=== PATIENT | female | born 1990 | race Caucasian/White ===

== ENCOUNTER 2021-08-29 18:54 | Inpatient (IN) | payer MEDICAID, OTHER ==
[2021-08-29] MEDS ORDERED: ACETAMINOPHEN TAB 325 MG TAB PO STA (21:55)
[2021-08-29 22:14] LABS: Amphetamine Screen,Urine Not Detected (NotDetected); Barbiturate Screen,Urine Not Detected (NotDetected); Benzodiazepines Screen,Urine Not Detected (NotDetected); Cocaine Screen,Urine Not Detected (NotDetected); Methadone Screen, Urine Not Detected (NotDetected); Opiate Screen,Urine Not Detected (NotDetected); Oxycodone Screen, Urine Not Detected (NotDetected); Phencyclidine Screen,Urine Not Detected (NotDetected); Tricyclic Antidepressant,Urine Not Detected (NotDetected); Urn Cannabinoid Scrn Not Detected (NotDetected)
[2021-08-29 22:57] LABS: Basophils # (A) 0.1 k/uL (0-0.2); Basophils % (A) 1 %; Eosinophils % (A) 0 %; HCT 37.6 % (34.0-46.0); HGB 12.3 gm/dL (11.4-16.0); Lymphocytes # (A) 3.7 k/uL (1.0-4.8); Lymphocytes % (A) 31 %; MCHC 32.6 g/dL (31.0-37.0); Mean Platelet Volume 8.2; Monocytes # (A) 0.7 k/uL (0-1.0); Monocytes % (A) 6 %; Neutrophils # (A) 7.3 k/uL (1.3-7.7); Neutrophils % (A) 61 %; Platelet Count 364 k/uL (150-450); RBC 4.08 m/uL (3.80-5.40)
[2021-08-29 23:13] LABS: ALT 14 U/L (4-34); AST 21 U/L (14-36); African American GFR (CKD) >90 (>60 ml/min/1.73 sqM); Albumin 4.2 g/dL (3.5-5.0); Alkaline Phosphatase 68 U/L (38-126); Anion Gap 6 mmol/L; Blood Urea Nitrogen 12 mg/dL (7-17); Calcium 8.9 mg/dL (8.4-10.2); Carbon Dioxide 24 mmol/L (22-30); Chloride 107 mmol/L (98-107); Glucose 99 mg/dL (74-99); Non-African American GFR(CKD) >90 (>60 ml/min/1.73 sqM); Potassium 3.8 mmol/L (3.5-5.1); Sodium 137 mmol/L (137-145); Total Bilirubin 0.6 mg/dL (0.2-1.3); Total Protein 6.9 g/dL (6.3-8.2)
[2021-08-30 00:15] LABS: Amorphous Sediment,Urine Rare /hpf; Appearance,Urine Cloudy (Clear); Bacteria,Urine Occasional /hpf; Bilirubin,Urine 1+ (Negative); Blood,Urine Negative (Negative); Calcium Oxalate Crystals,Urine Moderate /hpf; Color,Urine Yellow; Glucose,Urine (UA) Negative (Negative); Ketones,Urine Trace (Negative); Leukocyte Esterase,Urine Large (Negative); Mucus,Urine Many /hpf; Nitrite,Urine Negative (Negative); PH, Urine 5.5 (5.0-8.0); Protein,Urine 1+ (Negative); Specific Gravity,Urine 1.043 (1.001-1.035); Squamous Epithelial Cell,Urine 11 /hpf (0-4); WBC,Urine 8 /hpf (0-5)
[2021-08-30] MEDS ORDERED: MAGNESIUM HYDROXIDE 2,400 MG/10 ML CUP PO PRN (03:06)
[2021-08-30] MEDS ORDERED: HALOPERIDOL LACTATE 5 MG/ML 1 ML VIAL IM PRN (03:06)
[2021-08-30] MEDS ORDERED: MAG HYDROX/AL HYDROX/SIMETH 30 ML CUP PO PRN (03:06)
[2021-08-30] MEDS ORDERED: LORazepam 2 MG/ML INJ IM STA (03:10)
[2021-08-30] MEDS ORDERED: haloperidoL 5 MG TAB PO PRN (03:10)
[2021-08-30] MEDS ORDERED: LORazepam 2 MG/ML INJ IM PRN (03:26)
[2021-08-30] MEDS ORDERED: LORazepam 1 MG/0.5 ML VIAL IM PRN (06:15)
[2021-08-30] MEDS: ACETAMINOPHEN TAB 325 MG TAB PO PRN ×2 (12:17→19:30)
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
[2021-08-30] MEDS ORDERED: PALIPERIDONE 3 MG TAB.ER.24 PO SCH (21:00)
[2021-08-31 06:54] LABS: Basophils % (A) 1 %; Eosinophils % (A) 0 %; HCT 37.8 % (34.0-46.0); HGB 12.8 gm/dL (11.4-16.0); Lymphocytes # (A) 2.9 k/uL (1.0-4.8); Lymphocytes % (A) 43 %; MCH 31.7 pg (25.0-35.0); MCHC 33.7 g/dL (31.0-37.0); Monocytes # (A) 0.4 k/uL (0-1.0); Monocytes % (A) 6 %; Neutrophils # (A) 3.3 k/uL (1.3-7.7); Neutrophils % (A) 49 %; Platelet Count 323 k/uL (150-450); RBC 4.02 m/uL (3.80-5.40); RDW 13.1 % (11.5-15.5); WBC 6.7 k/uL (3.8-10.6)
[2021-08-31 07:06] LABS: ALT 14 U/L (4-34); AST 21 U/L (14-36); African American GFR (CKD) >90 (>60 ml/min/1.73 sqM); Albumin 4.1 g/dL (3.5-5.0); Alkaline Phosphatase 54 U/L (38-126); Anion Gap 6 mmol/L; Blood Urea Nitrogen 8 mg/dL (7-17); Calcium 8.6 mg/dL (8.4-10.2); Carbon Dioxide 24 mmol/L (22-30); Chloride 106 mmol/L (98-107); Glucose 89 mg/dL (74-99); Non-African American GFR(CKD) >90 (>60 ml/min/1.73 sqM); Potassium 3.9 mmol/L (3.5-5.1); Sodium 136 mmol/L (137-145); Total Bilirubin 0.8 mg/dL (0.2-1.3); Total Protein 6.6 g/dL (6.3-8.2)
[2021-08-31] MEDS: ACETAMINOPHEN TAB 325 MG TAB PO PRN ×2 (07:28→18:18)
[2021-08-31 07:55] LABS: C. trachomatis,PCR Negative (Neg,Equiv); Chlamydia trachomatis Source Urine; N. gonorrhoeae,PCR Negative (Neg,Equiv); Neisseria Source Urine
[2021-08-31 12:10] LABS: Chol/HDL Ratio 5.89 Ratio; LDL Cholesterol,Calculated 156.1 mg/dL (0.0-131.0)
--- NOTE | 2021-08-31 12:17 | P.PN ---
Progress Note - Text Progress Note Date: 08/31/21 Interval History: Patient was seen resting in bed and was directable and agreeable to speak with real estate underwriter in her room., The patient reports that she is feeling "tired." She does report that she was able to sleep much better last night compared to how she was sleeping prior to her admission to the hospital. She continues to report the delusional belief that people are controlling her however states that this is less intense than before. She read this intensity 7 out of 10 with 10 being most severe and how she was feeling prior to coming to the hospital. She is currently denying any suicidal or homicidal ideation, intention, and/or plan. She is not reporting any overt auditory or visual hallucinations. She has been adherent with medication and only reports mild sedation as a side effect at this time. She is agreeable to further titration of her Invega. Mental Status Exam: General Appearance: Patient appears to be stated age is alert, directable, and cooperative. Behavior: Patient is calmly seated without any agitated behavior. Speech: Patient's speech is fluent and nonpressured. Mood/Affect: Mood is improving mildly, affect is congruent and constricted. Suicidality/Homicidality: Patient denies having any suicidal or homicidal ideation intent or plan. Perceptions: Patient denies any visual hallucinations and denies any auditory hallucinations Though content/process: She continues to have delusional beliefs and paranoia. She believes that people are able to control her and that her actions are not her own. Memory and concentration: AOX3, grossly intact for the purposes of this session Judgment and insight: Improving mildly Vital Signs Temp 97.7 F 08/31/21 04:30 Pulse 126 H 08/31/21 04:30 Resp 18 08/31/21 04:30 BP 134/87 08/31/21 04:30 Pulse Ox 100 08/30/21 05:34 FiO2 Intake & Output 08/30/21 08/31/21 08/31/21 18:59 06:59 18:59 Weight 104.326 kg Laboratory Results - Last 24 Hours 08/29/21 08/31/21 08/31/21 23:20 06:13 06:13 WBC 6.7 RBC 4.02 Hgb 12.8 Hct 37.8 MCV 94.0 MCH 31.7 MCHC 33.7 RDW 13.1 Plt Count 323 MPV 8.0 Neutrophils % 49 Lymphocytes % 43 Monocytes % 6 Eosinophils % 0 Basophils % 1 Neutrophils # 3.3 Lymphocytes # 2.9 Monocytes # 0.4 Eosinophils # 0.0 Basophils # 0.0 Sodium Potassium Chloride Carbon Dioxide Anion Gap BUN Creatinine Est GFR (CKD-EPI)AfAm Est GFR (CKD-EPI)NonAf Glucose Estimated Ave Glu mg/dL 94 Hemoglobin A1c 4.9 Calcium Total Bilirubin AST ALT Alkaline Phosphatase Total Protein Albumin Triglycerides Cholesterol LDL Cholesterol, Calc VLDL Cholesterol, Calc HDL Cholesterol Cholesterol/HDL Ratio TSH Chlamydia Source Urine Chlamydia DNA (PCR) Negative N. gonorrhoeae Source Urine N.gonorrhoeae DNA Probe Negative 08/31/21 06:13 WBC RBC Hgb Hct MCV MCH MCHC RDW Plt Count MPV Neutrophils % Lymphocytes % Monocytes % Eosinophils % Basophils % Neutrophils # Lymphocytes # Monocytes # Eosinophils # Basophils # Sodium 136 L Potassium 3.9 Chloride 106 Carbon Dioxide 24 Anion Gap 6 BUN 8 Creatinine 0.62 Est GFR (CKD-EPI)AfAm >90 Est GFR (CKD-EPI)NonAf >[address] Glu mg/dL Hemoglobin A1c Calcium 8.6 Total Bilirubin 0.8 AST 21 ALT 14 Alkaline Phosphatase 54 Total Protein 6.6 Albumin 4.1 Triglycerides 191.00 H Cholesterol 234.00 H LDL Cholesterol, Calc 156.1 H VLDL Cholesterol, Calc 38.20 HDL Cholesterol 39.70 L Cholesterol/HDL Ratio 5.89 TSH 3.010 Chlamydia Source Chlamydia DNA (PCR) N. gonorrhoeae Source N.gonorrhoeae DNA Probe Assessment Schizoaffective disorder, bipolar type Plan: -Patient continues to meet criteria for inpatient psychiatric admission for symptom stabilization and safety. Patient has signed adult voluntary form and medication consent and was placed in patient's chart. -Medications: Increase Invega to 6 mg by mouth at bedtime for mood stabilization/psychosis. Consider patient to 9 mg and possible transition to a long-acting injectable medication if the patient is agreeable. -When necessary Ativan and Haldol for agitation/aggression. -SW on board for discharge planning. Encouraged the patient to participate in milieu.
[2021-08-31] MEDS: LORazepam 1 MG TAB PO PRN (14:19)
[2021-08-31] MEDS: PROPRANOLOL 20 MG TAB PO SCH ×2 (16:26→19:49)
[2021-08-31] MEDS: PALIPERIDONE 3 MG TAB.ER.24 PO SCH (21:58)
--- NOTE | 2021-09-01 07:18 | P.HPMEDMHU ---
History of Present Illness H&P Date: 08/31/21 Chief Complaint: Medical management Is a late note entry. Patient was seen on 08/31/2021. Patient is a 31-year-old female with no significant past medical history that is admitted to the mental health unit. [facility] physicians has been consulted for medical management of this patient. Patient reports back pain has been ongoing for the past week. Pain extends from the neck or lumbar region, bilateral, described as sore in nature, worsened with movement. Patient associates her pain with involuntary movement. She reports the pain to be dull and achy. She reports that sleeping makes it better. Pain is currently 5 out of 10 in severity. States that Tylenol helps. Denies any bladder or bowel incontinence. Denies any saddle anesthesia. She also complains of brain fog. She complains of flaky circular rash that occurring in patches on her left leg and left chest. She would like to be tested for syphilis. She denies any headache, lower extremity edema, nausea vomiting, fever or chills, cough, chest pain, changes in urination or bowel habits. No changes in appetite or weight. She denies any dizziness, numbness/weakness/ tingling of the extremities. She denies smoking cigarettes. Reports occasional marijuana use. Reports occasional alcohol use. Review of systems has been performed and is negative except for above. General: [non toxic], [no distress], [appears at stated age] Derm: [warm], [dry] Head: [atraumatic], [normocephalic], [symmetric] Eyes: [EOMI], [no lid lag], [anicteric sclera] Mouth: [no lip lesion], [mucus membranes moist] Cardiovascular: [S1S2 reg], [no murmur] Lungs: [CTA bilateral], [no rhonchi, no rales] , [no accessory muscle use] Abdominal: [soft], [ nontender to palpation], [no guarding], [no appreciable organomegaly] Ext: [no gross muscle atrophy], [no edema], [flaky raised circular rash in the left lower extremity and left upper chest 0.5 cm x 0.5 cm] Neuro: [ CN II-XI grossly intact], [no focal neuro deficits] Psych: [Alert], [oriented], [appropriate affect] She has full range of motion of her neck, Brudzinski and Kernig negative. Assessment and plan Rash appears to be psoriasis Chronic lower back pain likely musculoskeletal Asymptomatic bacteriuria Dyslipidemia Morbid obesity Her rash appears to be psoriasis. Would recommend trial of hydrocortisone. She would like to be tested for syphilis. Back pain likely related to musculoskeletal pain Tylenol as needed for pain. No antibiotics for asymptomatic bacteria. Encourage dietary modification dyslipidemia. Patient would benefit from a structured weight loss program. Past Medical History Past Medical History: No Reported History History of Any Multi-Drug Resistant Organisms: None Reported Past Surgical History: No Surgical Hx Reported Past Anesthesia/Blood Transfusion Reactions: No Reported Reaction Past Psychological History: Anxiety, Depression, Panic Disorder, PTSD Smoking Status: Never smoker Past Alcohol Use History: Occasional Past Drug Use History: None Reported Medications and Allergies Home Medications Medication Instructions Recorded Confirmed Type ARIPiprazole [Abilify] 5 mg PO DAILY 08/29/21 08/29/21 History OXcarbazepine [Trileptal] 300 mg PO BID 08/29/21 08/29/21 History Propranolol [Inderal] 20 mg PO BID 08/29/21 08/29/21 History buPROPion XL [Wellbutrin XL] 150 mg PO DAILY 08/29/21 08/29/21 History busPIRone HCL [Buspirone HCl] 15 mg PO TID 08/29/21 08/29/21 History Allergies Allergy/AdvReac Type Severity Reaction Status Date / Time amoxicillin [From Augmentin] Allergy Rash/Hives Verified 08/29/21 22:35 clavulanic acid Allergy Rash/Hives Verified 08/29/21 22:35 [From Augmentin] Penicillins Allergy Rash/Hives Verified 08/29/21 22:35 Sulfa (Sulfonamide Allergy Rash/Hives Verified 08/29/21 22:35 Antibiotics) Physical Exam Vitals: Vital Signs Temp Pulse Resp BP 08/31/21 16:25 125 H 135/90 08/31/21 04:30 97.7 F 126 H 18 134/87 Cranial Nerve Examination - Cranial Nerves Cranial Nerve II- Optic: Intact Cranial Nerve III- Oculomotor: Intact Cranial Nerve IV- Trochlear: Intact Cranial Nerve V- Trigeminal: Intact Cranial Nerve - Abducens: Intact Cranial Nerve VII- Facial: Intact Cranial Nerve VIII- Auditory: Intact Cranial Nerve IX- Glossopharyngeal: Intact Cranial Nerve X- Vagus: Intact Cranial Nerve XI- Accessory: Intact Cranial Nerve XII- Hypoglossal: Intact Results CBC & Chem 7: 08/31/21 06:13 08/31/21 06:13 Labs: Abnormal Lab Results - Last 24 Hours (Table) 08/31/21 Range/Units 06:13 Sodium 136 L (137-145) mmol/L Triglycerides 191.00 H (0.00-149.00) mg/dL Cholesterol 234.00 H (0.00-200.00) mg/dL LDL Cholesterol, Calc 156.1 H (0.0-131.0) mg/dL HDL Cholesterol 39.70 L (40.00-60.00) mg/dL Thrombosis Risk Factor Assmnt - Choose All That Apply Any of the Below Risk Factors Present?: Yes Each Factor Represents 1 point: Obesity (BMI >25) Other Risk Factors: No Other congenital or acquired thrombophilia - If yes, enter type in comment: No Thrombosis Risk Factor Assessment Total Risk Factor Score: 1 Thrombosis Risk Factor Assessment Level: Low Risk
[2021-09-01] MEDS: PROPRANOLOL 20 MG TAB PO SCH ×2 (07:59→20:08)
[2021-09-01] MEDS: HYDROCORTISONE 1% CREAM 30 GM TUBE TOPICAL PRN (09:53)
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
[2021-09-01] MEDS: PALIPERIDONE 3 MG TAB.ER.24 PO SCH (20:09)
[2021-09-01] MEDS: LORazepam 1 MG TAB PO PRN (23:24)
[2021-09-02] MEDS: PROPRANOLOL 20 MG TAB PO SCH ×2 (08:53→20:45)
--- NOTE | 2021-09-02 15:35 | P.PN ---
Progress Note - Text Progress Note Date: 09/02/21 Interval History: Patient was seen sleeping in her room and was directable and agreeable to speak with proposal lead writer in the office. She reports she slept 6 hours last night, had difficulty falling asleep and was anxious, and was given Ativan 1 mg po x 1 and she fell asleep. She reports she was having difficulty with the sensations she was having in her body, of "People, sometimes, that have different preferences for things to be done a certain way, if I don't do it, they can give me a hard time, like give me a headache or make me feel uncomfortable". She appears to have delusions of control, that other people can control her body. She recognizes that this is a "delusion" in her own words. Her thoughts are linear and coherent. At this time patient denies any suicidal or homical ideations, intent or plan. Patient denies any auditory or visual hallucinations. Patient denies any side effects from the medications and has been compliant with meds. Mental Status Exam: General Appearance: Patient appears to be stated age, is obese, dressed in clean casual attire. Behavior: Patient is calmly seated without any agitated behavior. Speech: Patient's speech is fluent and non-pressured. Mood/Affect: Mood is improving mildly, affect is congruent and constricted. Suicidality/Homicidality: Patient denies having any suicidal or homicidal ideation intent or plan. Perceptions: Patient denies any visual hallucinations and denies any auditory hallucinations. Though content/process: There is evidence of delusional thought content; and thought process is linear and goal-directed. Memory and concentration: Grossly intact for the purposes of this session Judgment and insight: Improving mildly Assessment: Schizophreniform disorder Rule out Schizoaffective disorder, depressed vs bipolar type Major depressive disorder by history PTSD by history Generalized anxiety disorder by history Plan: -Patient continues to meet criteria for inpatient psychiatric admission for symptom stabilization and safety. Patient has not signed adult voluntary form and medication consent and was placed in patient's chart. -Medications: Invega to 9 mg daily for psychosis. We reviewed her lab results in detail today and answered her questions. -When necessary Ativan and Haldol for agitation/aggression. -NRT - nonsmoker. -SW on board for discharge planning. Encouraged the patient to participate in milieu. []
[2021-09-02] MEDS: HYDROCORTISONE 1% CREAM 30 GM TUBE TOPICAL PRN (16:21)
[2021-09-02] MEDS: ACETAMINOPHEN TAB 325 MG TAB PO PRN (19:43)
[2021-09-02] MEDS: PALIPERIDONE 3 MG TAB.ER.24 PO SCH (20:45)
[2021-09-02 20:47] LABS: Appearance,Urine Clear (Clear); Bacteria,Urine Rare /hpf; Bilirubin,Urine Negative (Negative); Blood,Urine Negative (Negative); Color,Urine Yellow; Glucose,Urine (UA) Negative (Negative); Hyaline Casts,Urine 1 /lpf (0-2); Ketones,Urine Negative (Negative); Leukocyte Esterase,Urine Small (Negative); Mucus,Urine Rare /hpf; Nitrite,Urine Negative (Negative); Protein,Urine Negative (Negative); RBC,Urine 1 /hpf (0-5); Specific Gravity,Urine 1.016 (1.001-1.035); Squamous Epithelial Cell,Urine <1 /hpf (0-4); Urobilinogen,Urine <2.0 mg/dL (<2.0); WBC,Urine 1 /hpf (0-5)
[2021-09-02] MEDS: LORazepam 1 MG TAB PO PRN (21:37)
[2021-09-03] MEDS: PROPRANOLOL 20 MG TAB PO SCH ×2 (08:35→20:55)
[2021-09-03] MEDS: HYDROCORTISONE 1% CREAM 30 GM TUBE TOPICAL PRN (10:10)
--- NOTE | 2021-09-03 17:41 | P.PN ---
Progress Note - Text Progress Note Date: 09/03/21 Interval History: Patient was seen wandering in the hallway and was directable and agreeable to speak with residential mortgage underwriter in the office. She reports her mood is "neutral". She reports she slept 6-7 hours last night. She reports sensations in her body of people making her head rock back and forth, reports she has an urge to move her body around, that people may be working on her body, setting things up or taking things down. At this time patient denies any suicidal or homical ideations, intent or plan. Patient denies any auditory or visual hallucinations. Patient denies any side effects from the medications and has been compliant with meds. Mental Status Exam: General Appearance: Patient appears to be stated age, is obese, dressed in clean casual attire. Behavior: Patient is calmly seated without any agitated behavior. Speech: Patient's speech is fluent and non-pressured. Mood/Affect: Mood is improving mildly, affect is congruent and constricted. Suicidality/Homicidality: Patient denies having any suicidal or homicidal ideation intent or plan. Perceptions: Patient denies any visual hallucinations and denies any auditory hallucinations. Though content/process: There is evidence of delusional thought content; and thought process is linear and goal-directed. Memory and concentration: Grossly intact for the purposes of this session Judgment and insight: Improving mildly Assessment: Schizophreniform disorder Rule out Schizoaffective disorder, depressed vs bipolar type Major depressive disorder by history PTSD by history Generalized anxiety disorder by history Plan: -Patient continues to meet criteria for inpatient psychiatric admission for symptom stabilization and safety. Patient has not signed adult voluntary form and medication consent and was placed in patient's chart. -Medications: Increase Invega to 6 mg BID for psychosis starting tomorrow morning. We reviewed her lab results in detail today and answered her questions. -When necessary Ativan and Haldol for agitation/aggression. -NRT - nonsmoker. -SW on board for discharge planning. Encouraged the patient to participate in milieu.
[2021-09-03] MEDS: PALIPERIDONE 3 MG TAB.ER.24 PO SCH (20:55)
[2021-09-03] MEDS: hydrOXYzine pamoate 25 MG CAP PO PRN (23:58)
[2021-09-04] MEDS: ACETAMINOPHEN TAB 325 MG TAB PO PRN ×3 (06:10→20:27)
[2021-09-04] MEDS: PALIPERIDONE 6 MG TAB.ER.24 PO SCH ×2 (08:54→20:27)
[2021-09-04] MEDS: PROPRANOLOL 20 MG TAB PO SCH ×3 (08:55→22:28)
--- NOTE | 2021-09-04 15:42 | P.PN ---
Progress Note - Text Progress Note Date: 09/04/21 Interval History: Patient was seen wandering in the hallway and was directable and agreeable to speak with marketing copywriter in the office. She presents She is talking about people controlling her "body like if they are on a [place], they're body movement is out of alignment of her own causing her to have some back pain." She states she recognizes this is delusional. Her mood is modestly elevated, she comes into the room with a folder of brightly colored drawings and wants to give me one. Her thoughts are tangential with bizarre thought content, somewhat pressured today. At this time patient denies any suicidal or homicidal ideations, intent or plan. Patient denies any auditory or visual hallucinations. She is compliant with her medications and today reports some "shakiness" but reports it may have started before she got here. Mental Status Exam: General Appearance: Patient appears to be stated age, is obese, dressed in clean casual attire. Behavior: Patient is seated without any agitated behavior. Speech: Patient's speech is fluent and seems pressured today. Mood/Affect: Mood is mildly elevated, affect is congruent and broad. Suicidality/Homicidality: Patient denies having any suicidal or homicidal ideation intent or plan. Perceptions: Patient denies any visual hallucinations and denies any auditory hallucinations. Though content/process: There is evidence of delusional thought content; and thought process is tangential and rambling. Memory and concentration: Grossly intact for the purposes of this session Judgment and insight: Improving mildly Assessment: Schizoaffective disorder, bipolar type PTSD by history Generalized anxiety disorder by history Plan: -Patient continues to meet criteria for inpatient psychiatric admission for symptom stabilization and safety. Patient has not signed adult voluntary form and medication consent and was place d in patient's chart. -Medications: Invega increased to 6 mg BID for psychosis starting today. Start [place] 300 mg BID for manic symptoms. Start Cogentin 0..5 mg BID for EPS. -When necessary Ativan and Haldol for agitation/aggression. -NRT - nonsmoker. -SW on board for discharge planning. Encouraged the patient to participate in milieu.
[2021-09-04] MEDS: LITHIUM CARBONATE 300 MG CAP PO SCH (20:27)
[2021-09-04] MEDS: BENZTROPINE MESYLATE 0.5 MG TAB PO SCH (20:27)
[2021-09-05] MEDS: hydrOXYzine pamoate 25 MG CAP PO PRN (02:51)
[2021-09-05] MEDS: ACETAMINOPHEN TAB 325 MG TAB PO PRN ×3 (03:51→16:55)
[2021-09-05] MEDS: PROPRANOLOL 20 MG TAB PO SCH ×2 (08:20→20:16)
[2021-09-05] MEDS: PALIPERIDONE 6 MG TAB.ER.24 PO SCH (08:20)
[2021-09-05] MEDS: BENZTROPINE MESYLATE 0.5 MG TAB PO SCH ×2 (08:20→20:16)
[2021-09-05] MEDS: LITHIUM CARBONATE 300 MG CAP PO SCH ×2 (08:20→20:18)
--- NOTE | 2021-09-05 11:26 | P.PN ---
Progress Note - Text Progress Note Date: 09/05/21 Interval History: Patient was seen standing in her room and was directable and agreeable to speak with resume writer in the office. The patient reports that she continues to feel like her body is not under her control. She states that she is able to identify that this is a delusion however is concerned as she really does believe that there is psychology out there that would allow people to place microchips in order to control others and that she is likely under the influence of these microchips. She is otherwise not reporting any auditory hallucinations or visual hallucinations. She has been adherent with her medications and is not endorsing any significant side effects at this time. When asked if this is affecting her day-to-day living, the patient does report that she does express concern with her ability to make decisions as she feels like she is not the one making the decisions for herself. The patient does report that she had difficulty with sleep last night. She states that she'll miss slept for approximately 3 hours. She was recently started on lithium yesterday. Mental Status Exam: General Appearance: Patient appears to be stated age is alert, directable, and cooperative. Behavior: Patient displays some psychomotor agitation. Eye contact is fede ropriate. Speech: Patient's speech is fluent and nonpressured. Mood/Affect: Mood is "a little nervous." Affect is blunted. Suicidality/Homicidality: Patient denies having any suicidal or homicidal ideation intent or plan. Perceptions: Patient denies any visual hallucinations and denies any auditory hallucinations Though content/process: Patient continues to endorse delusional beliefs of con trol. Memory and concentration: AOX3, grossly intact for the purposes of this session Judgment and insight: Improving mildly Vital Signs Temp 98.9 F 09/05/21 04:50 Pulse 107 H 09/05/21 04:50 Resp 16 09/04/21 22:29 BP 113/85 09/05/21 04:50 Pulse Ox 98 09/04/21 16:17 FiO2 Assessment Schizoaffective disorder, bipolar type PTSD by history Generalized anxiety disorder by history Plan: -Patient continues to meet criteria for inpatient psychiatric admission for symptom stabilization and safety. Patient has signed adult voluntary form and medication consent and was placed in patient's chart. -Medications: Discontinue Invega and switched to Prolixin 5 mg by mouth twice a day for psychosis Continue Inderal 20 mg by mouth twice a day Continue benztropine 0.5 mg by mouth twice a day Continue lithium 3 mg by mouth twice a day -When necessary Ativan and Haldol for agitation/aggression. -SW on board for discharge planning. Encouraged the patient to participate in milieu.
[2021-09-06] MEDS: ACETAMINOPHEN TAB 325 MG TAB PO PRN ×3 (00:10→20:35)
[2021-09-06] MEDS: BENZTROPINE MESYLATE 0.5 MG TAB PO SCH (08:49)
[2021-09-06] MEDS: PROPRANOLOL 20 MG TAB PO SCH (08:49)
[2021-09-06] MEDS: LITHIUM CARBONATE 300 MG CAP PO SCH (08:49)
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
[2021-09-06] MEDS ORDERED: PALIPERIDONE 6 MG TAB.ER.24 PO SCH (21:00)
[2021-09-07] MEDS ORDERED: SERTRALINE 25 MG TAB PO STA (10:05)
[2021-09-07] MEDS: PROPRANOLOL 20 MG TAB PO PRN (10:42)
--- NOTE | 2021-09-07 13:33 | P.PN ---
Progress Note - Text Progress Note Date: 09/07/21 Interval History: Patient was seen standing in her room and was directable and agreeable to speak with copywriter in the office. The patient is not endorsing any significant delusions today however is endorsing multiple side effects of the medication which she points out after reading the medication info sheet. She reports that she is experiencing significant EPS symptoms and tardive dyskinesia however the patient does not display any significant issues or concerns on physical examination aside from subjective feelings of tremors. AIMS was 0 on assessment by this provider. She is not reporting any suicidal or homicidal ideation, intention, and/or plan. She is not reporting any auditory or visual hallucinations. She expresses that she does not want to be on high dose of Invega and is requesting that she be placed on a different medication aside from an antipsychotic. The patient firmly believes that she did not have any significant symptoms of psychosis and maintains that this is all anxiety related. She was informed that her initial presentation as well as her presentation even a few days ago was consistent with psychosis however she displays poor insight into her condition. She is however agreeable to continue Invega at a lower dose. Mental Status Exam: General Appearance: Patient appears to be stated age is alert, directable, and cooperative. Behavior: Patient displays no psychomotor agitation. Eye contact is appropriate. Speech: Patient's speech is fluent and nonpressured. Mood/Affect: Mood is "I act like I'm having all the side effects and you're not listening." Affect is nervous. Suicidality/Homicidality: Patient denies having any suicidal or homicidal ideation intent or plan. Perceptions: Patient reported visual hallucinations last night however denies any auditory hallucinations. Though content/process: Patient is endorsing somatic symptoms today however is not presenting with any psychotic delusions today. Memory and concentration: AOX3, grossly intact for the purposes of this session Judgment and insight: Poor AIMS SCORE: 0 Vital Signs Temp 98.0 F 09/07/21 07:25 Pulse 91 09/07/21 10:42 Resp 20 09/07/21 07:25 BP 108/64 09/07/21 10:42 Pulse Ox 96 09/07/21 07:25 FiO2 Assessment Schizoaffective disorder, bipolar type PTSD by history Generalized anxiety disorder by history Plan: -Patient continues to meet criteria for inpatient psychiatric admission for symptom stabilization and safety. Patient has signed adult voluntary form and medication consent and was placed in patient's chart. -Anticipate discharge for tomorrow. -Medications: Decrease Invega to 9 mg by mouth at bedtime for psychosis Continue Inderal 20 mg by mouth twice a day Continue benztropine 0.5 mg by mouth twice a day Discontinue lithium -When necessary Ativan and Haldol for agitation/aggression. -SW on board for discharge planning. Encouraged the patient to participate in milieu.
[2021-09-07] MEDS ORDERED: PALIPERIDONE 3 MG TAB.ER.24 PO SCH (21:00)
[2021-09-07] MEDS: hydrOXYzine pamoate 25 MG CAP PO PRN (22:05)
[2021-09-08 07:03] VITALS: BP 91/52; PULSE 88; RESP 16; TEMP 97.7
[2021-09-08] MEDS ORDERED: SERTRALINE 50 MG TAB PO SCH (09:00)
[2021-09-08] MEDS: PROPRANOLOL 20 MG TAB PO PRN (12:03)
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
== END 2021-09-08 12:55 | disposition home or self-care (01) | DRG 885 ==
LOC: EC 18:54 → 3MHU 08-30 04:43
PROVIDERS: ADMIT Psychiatry & Neurology Psychiatry; ATTEND Psychiatry & Neurology Psychiatry
DX: F25.0 Schizoaffective disorder, bipolar type (principal); E66.01 Morbid (severe) obesity due to excess calories; Z20.822 Contact with and (suspected) exposure to COVID-19; F41.1 Generalized anxiety disorder; F43.10 Post-traumatic stress disorder, unspecified; Z68.38 Body mass index [BMI] 38.0-38.9, adult; R82.71 Bacteriuria; E78.5 Hyperlipidemia, unspecified; L40.9 Psoriasis, unspecified; G89.29 Other chronic pain; G47.00 Insomnia, unspecified; M54.50 Low back pain, unspecified; Z79.899 Other long term (current) drug therapy; Z91.51 Personal history of suicidal behavior; Z62.811 Personal history of psychological abuse in childhood; Z91.410 Personal history of adult physical and sexual abuse; Z56.0 Unemployment, unspecified; Z88.1 Allergy status to other antibiotic agents; Z88.0 Allergy status to penicillin; Z88.2 Allergy status to sulfonamides; Z88.8 Allergy status to other drugs, medicaments and biological substances; Z81.8 Family history of other mental and behavioral disorders
CPT/HCPCS: 36415; 80053; 80061; 80306; 81001; 81025; 82075; 83036; 84443; 85025; 86780; 87491; 87591; 87635; 99285

== ENCOUNTER 2021-10-17 17:19 | Inpatient (IN) | payer MEDICAID, OTHER ==
--- NOTE | 2021-10-17 19:20 | ED ---
Psych HPI - General Source: patient Mode of arrival: ambulatory <Karly Devlin - Last Filed: 10/17/21 23:53> <Fady Morocho - Last Filed: 10/18/21 03:22> - General Chief Complaint: Psychiatric Symptoms Stated Complaint: mental health Time Seen by Provider: 10/17/21 18:29 - History of Present Illness Initial Comments: Patient is a 31-year-old female presents to emergency room with her mother with concerns regarding abnormal activity after stopping her medications approximately 3 weeks ago. She decided today to start taking her medications again as she has flight of ideas, faculty differentiating reality from thoughts. Her mother also reports that she speaks about having other "people with her". She denies any auditory or visual hallucinations at this time. Has participated in manic-like behavior over the last week including quitting her job purchasing a vehicle driving across the state living out of her car and giving hitchhiker's rights. She denies any suicidal thoughts, thoughts of self-harm or harming others. She is to be following with [facility] and her provider at [facility] advised her to seek medical attention/psychiatric attention at the hospital given her symptoms today. She reports catatonic like panic attacks often over the last several days as well with her most recent one being approximately 1 hour ago. She and her mother are unsure of definitive psychiatric diagnosis but report manic depression and possible schizoaffective disorder. She has no other significant past medical history and is not on any medications not related to mental health. (Karly Devlin) - Related Data Home Medications Medication Instructions Recorded Confirmed Brexpiprazole [Rexulti] 2 mg PO DAILY 10/17/21 10/17/21 Previous Rx's Medication Instructions Recorded Propranolol [Inderal] 20 mg PO BID PRN 30 Days tab 09/08/21 hydrOXYzine pamoate [Vistaril] 25 mg PO HS PRN 30 Days cap 09/08/21 Allergies Allergy/AdvReac Type Severity Reaction Status Date / Time amoxicillin [From Augmentin] Allergy Rash/Hives Verified 10/17/21 21:55 clavulanic acid Allergy Rash/Hives Verified 10/17/21 21:55 [From Augmentin] Penicillins Allergy Rash/Hives Verified 10/17/21 21:55 Sulfa (Sulfonamide Allergy Rash/Hives Verified 10/17/21 21:55 Antibiotics) Review of Systems ROS Other: All systems not noted in ROS Statement are negative. <DoniphanKarly - Last Filed: 10/17/21 23:53> ROS Other: All systems not noted in ROS Statement are negative. <Fady Morocho - Last Filed: 10/18/21 03:22> ROS Statement: Those systems with pertinent positive or pertinent negative responses have been documented in the HPI. Past Medical History Past Medical History: No Reported History History of Any Multi-Drug Resistant Organisms: None Reported Past Surgical History: No Surgical Hx Reported Past Anesthesia/Blood Transfusion Reactions: No Reported Reaction Past Psychological History: Anxiety, Depression, Panic Disorder, PTSD Smoking Status: Never smoker Past Alcohol Use History: Occasional Past Drug Use History: None Reported, Marijuana <Karly Devlin - Last Filed: 10/17/21 23:53> General Exam General appearance: alert, in no apparent distress Head exam: Present: atraumatic, normocephalic, normal inspection Eye exam: Present: normal appearance, PERRL, EOMI. Absent: scleral icterus, conjunctival injection, periorbital swelling ENT exam: Present: normal exam, mucous membranes moist Neck exam: Present: normal inspection Respiratory exam: Present: normal lung sounds bilaterally. Absent: respiratory distress, wheezes, rales, rhonchi, stridor Cardiovascular Exam: Present: regular rate, normal rhythm, normal heart sounds. Absent: systolic murmur, diastolic murmur, rubs, gallop, clicks GI/Abdominal exam: Present: soft, normal bowel sounds. Absent: distended, tenderness, guarding, rebound, rigid Extremities exam: Present: normal inspection, full ROM. Absent: pedal edema, joint swelling Back exam: Present: normal inspection Neurological exam: Present: alert, oriented X3, CN II-XII intact Psychiatric exam: Present: flat affect Expanded Focused psych exam: Present: paranoid, restlessness Skin exam: Present: warm, dry, intact, normal color. Absent: rash <ClausKarly - Last Filed: 10/17/21 23:53> General appearance: alert, in no apparent distress Head exam: Present: atraumatic, normocephalic, normal inspection Eye exam: Present: normal appearance, PERRL, EOMI. Absent: scleral icterus, conjunctival injection, periorbital swelling ENT exam: Present: normal exam, mucous membranes moist Neck exam: Present: normal inspection. Absent: tenderness, meningismus, lymphadenopathy Respiratory exam: Present: normal lung sounds bilaterally. Absent: respiratory distress, wheezes, rales, rhonchi, stridor Cardiovascular Exam: Present: regular rate, normal rhythm, normal heart sounds. Absent: systolic murmur, diastolic murmur, rubs, gallop, clicks GI/Abdominal exam: Present: soft, normal bowel sounds. Absent: distended, tenderness, guarding, rebound, rigid Extremities exam: Present: normal inspection, full ROM, normal capillary refill. Absent: tenderness, pedal edema, joint swelling, calf tenderness Back exam: Present: normal inspection Neurological exam: Present: alert, oriented X3, CN II-XII intact Psychiatric exam: Present: normal affect, normal mood Skin exam: Present: warm, dry, intact, normal color. Absent: rash <Fady Mroocho - Last Filed: 10/18/21 03:22> Course <Fady Morocho - Last Filed: 10/18/21 03:22> Vital Signs 10/17/21 10/17/21 17:49 19:30 Temperature 98.1 F Pulse Rate 119 H 103 H Respiratory 20 Rate Blood Pressure 125/84 O2 Sat by Pulse 100 Oximetry - Reevaluation(s) Reevaluation #1: 10/18/21 03:21 Medical clear for psychiatric evaluation (Fady Morocho) Medical Decision Making <Karly Devlin - Last Filed: 10/17/21 23:53> <Fady Morocho - Last Filed: 10/18/21 03:22> - Medical Decision Making 31-year-old female brought into the emergency room by her mother with concerns of inappropriate behavior, derealization, catatonic anxiety attacks and stoppage of her medication. No indication for diagnostic imaging or laboratory studies. Medically clear for EPS evaluation. EPS evaluation by nurse completed. Patient to be admitted for manic bipolar disorder and evaluation for schizoaffective disorder. Case discussed with Dr. Mcmillan. (Karly Devlin) 31 female is seen and evaluated by psychiatry and will be admitted for psychi atric evaluation and treatment (Fady Morocho) Disposition Is patient prescribed a controlled substance at d/c from ED?: No Time of Disposition: 23:54 <Karly Devlin - Last Filed: 10/17/21 23:53> Is patient prescribed a controlled substance at d/c from ED?: No <Fady Morocho - Last Filed: 10/18/21 03:22> Clinical Impression: Bipolar disorder with severe karel, PTSD (post-traumatic stress disorder), Generalized anxiety disorder, Schizophrenia, Depression Disposition: TRANSFER TO PSYCH HOSP/UNIT Condition: Fair Referrals: None,Stated [Primary Care Provider] - 1-2 days
[2021-10-18] MEDS ORDERED: LORazepam 1 MG TAB PO PRN ×2 (01:30→03:51)
[2021-10-18] MEDS ORDERED: LORazepam 2 MG/ML INJ IM PRN (01:31)
[2021-10-18] MEDS ORDERED: haloperidoL 5 MG TAB PO PRN (01:31)
[2021-10-18] MEDS ORDERED: HALOPERIDOL LACTATE 5 MG/ML 1 ML VIAL IM PRN (01:31)
[2021-10-18] MEDS ORDERED: MAG HYDROX/AL HYDROX/SIMETH 30 ML CUP PO PRN (03:45)
[2021-10-18] MEDS ORDERED: MAGNESIUM HYDROXIDE 2,400 MG/10 ML CUP PO PRN (03:45)
[2021-10-18] MEDS ORDERED: ACETAMINOPHEN TAB 325 MG TAB PO PRN (03:45)
[2021-10-18 04:54] LABS: Appearance,Urine Clear (Clear); Bacteria,Urine Occasional /hpf; Bilirubin,Urine Negative (Negative); Blood,Urine Small (Negative); Color,Urine Yellow; Glucose,Urine (UA) Negative (Negative); Ketones,Urine Negative (Negative); Leukocyte Esterase,Urine Trace (Negative); Mucus,Urine Few /hpf; Nitrite,Urine Negative (Negative); PH, Urine 5.5 (5.0-8.0); Protein,Urine Negative (Negative); RBC,Urine 1 /hpf (0-5); Specific Gravity,Urine 1.011 (1.001-1.035); Squamous Epithelial Cell,Urine 2 /hpf (0-4); Urobilinogen,Urine <2.0 mg/dL (<2.0); WBC,Urine 2 /hpf (0-5)
[2021-10-18 05:00] LABS: Amphetamine Screen,Urine Not Detected (NotDetected); Barbiturate Screen,Urine Not Detected (NotDetected); Benzodiazepines Screen,Urine Not Detected (NotDetected); Cocaine Screen,Urine Not Detected (NotDetected); Methadone Screen, Urine Not Detected (NotDetected); Opiate Screen,Urine Not Detected (NotDetected); Oxycodone Screen, Urine Not Detected (NotDetected); Phencyclidine Screen,Urine Not Detected (NotDetected); Tricyclic Antidepressant,Urine Not Detected (NotDetected); Urn Cannabinoid Scrn Not Detected (NotDetected)
[2021-10-18] MEDS ORDERED: PROPRANOLOL 20 MG TAB PO PRN (10:00)
[2021-10-18] MEDS ORDERED: traZODone HCL 50 MG TAB PO PRN (10:01)
[2021-10-18] MEDS: ZIPRASIDONE 20 MG CAP PO SCH ×2 (10:40→22:10)
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
--- NOTE | 2021-10-18 16:31 | P.CONS ---
History of Present Illness - Reason for Consult Consult date: 10/18/21 - History of Present Illness Patient is a 31-year-old female with no significant PMH that presents the ED for behavioral disturbances. She has been admitted to mental health unit for further management of symptoms. [facility] has been consulted for medical management of this patient. Patient currently denies any symptoms. She denies any headache, lower extremity edema, nausea or vomiting, fever or chills, cough, chest pain, shortness of breath, palpitations, changes in urination or bowel habits. No changes in appetite or weight. She denies any dizziness, numbness/weakness/tingling of the extremities. Review of systems is performed and is negative except above. Her vital signs are stable except for tachycardia with heart rate in the 90s. General: non toxic, no distress, appears at stated age, obese Derm: warm, dry Head: atraumatic, normocephalic, symmetric Eyes: EOMI, no lid lag, anicteric sclera Mouth: no lip lesion, mucus membranes moist Cardiovascular: S1S2 reg, no murmur, positive posterior tibial pulse bilateral, Lungs: CTA bilateral, no rhonchi, no rales , no accessory muscle use Abdominal: soft, nontender to palpation, no guarding, no appreciable organomegaly Ext: no gross muscle atrophy, no edema, no contractures Neuro: CN II-XI grossly intact, no focal neuro deficits Psych: Alert, oriented, appropriate affect #Nicotine abuse #Obesity Patient has been offered a nicotine patch. Patient would benefit from a structured weight loss program. Thank you for this consultation. Please call [facility] with additional questions or concerns. Past Medical History Past Medical History: No Reported History History of Any Multi-Drug Resistant Organisms: None Reported Past Surgical History: No Surgical Hx Reported Past Anesthesia/Blood Transfusion Reactions: No Reported Reaction Past Psychological History: Anxiety, Depression, Panic Disorder, PTSD Smoking Status: Never smoker Past Alcohol Use History: Occasional Past Drug Use History: None Reported, Marijuana Medications and Allergies Home Medications Medication Instructions Recorded Confirmed Type Propranolol [Inderal] 20 mg PO BID PRN 30 Days tab 09/08/21 10/18/21 Rx hydrOXYzine pamoate [Vistaril] 25 mg PO HS PRN 30 Days cap 09/08/21 10/18/21 Rx Brexpiprazole [Rexulti] 2 mg PO DAILY 10/17/21 10/18/21 History Allergies Allergy/AdvReac Type Severity Reaction Status Date / Time amoxicillin [From Augmentin] Allergy Rash/Hives Verified 10/18/21 03:53 clavulanic acid Allergy Rash/Hives Verified 10/18/21 03:53 [From Augmentin] Penicillins Allergy Rash/Hives Verified 10/18/21 03:53 Sulfa (Sulfonamide Allergy Rash/Hives Verified 10/18/21 03:53 Antibiotics) Physical Exam Vitals: Vital Signs Temp Pulse Pulse Resp BP BP Pulse Ox 10/18/21 10:00 98.6 F 96 16 111/66 98 10/18/21 04:07 97.4 F L 93 15 111/74 100 10/18/21 04:06 97.7 F 90 18 125/67 100 10/17/21 19:30 103 H 10/17/21 17:49 98.1 F 119 H 20 125/84 100 Intake and Output 10/18/21 10/18/21 10/18/21 06:59 14:59 22:59 Other: Weight 97.778 kg Results Labs: Abnormal Lab Results - Last 24 Hours (Table) 10/18/21 Range/Units 01:05 Urine Blood Small H (Negative) Ur Leukocyte Esterase Trace H (Negative) Urine Bacteria Occasional H (None) /hpf Urine Mucus Few H (None) /hpf
[2021-10-19 07:12] LABS: Basophils # (A) 0.1 k/uL (0-0.2); Basophils % (A) 1 %; Eosinophils # (A) 0.4 k/uL (0-0.7); Eosinophils % (A) 5 %; HCT 41.8 % (34.0-46.0); HGB 13.8 gm/dL (11.4-16.0); Lymphocytes # (A) 2.3 k/uL (1.0-4.8); Lymphocytes % (A) 30 %; MCH 30.9 pg (25.0-35.0); MCHC 32.9 g/dL (31.0-37.0); MCV 93.9 fL (80.0-100.0); Mean Platelet Volume 8.4; Monocytes # (A) 0.5 k/uL (0-1.0); Monocytes % (A) 7 %; Neutrophils # (A) 4.3 k/uL (1.3-7.7); Neutrophils % (A) 56 %; Platelet Count 270 k/uL (150-450); RBC 4.45 m/uL (3.80-5.40); RDW 12.1 % (11.5-15.5); WBC 7.7 k/uL (3.8-10.6)
[2021-10-19 07:54] LABS: ALT 14 U/L (4-34); AST 20 U/L (14-36); African American GFR (CKD) >90 (>60 ml/min/1.73 sqM); Albumin 3.9 g/dL (3.5-5.0); Alkaline Phosphatase 60 U/L (38-126); Anion Gap 14 mmol/L; Bilirubin,Unconjugated 0.9 mg/dL (0.0-1.1); Blood Urea Nitrogen 10 mg/dL (7-17); Calcium 9.2 mg/dL (8.4-10.2); Carbon Dioxide 21 mmol/L (22-30); Chloride 105 mmol/L (98-107); Glucose 88 mg/dL (74-99); Non-African American GFR(CKD) >90 (>60 ml/min/1.73 sqM); Potassium 4.2 mmol/L (3.5-5.1); Sodium 140 mmol/L (137-145); Total Bilirubin 0.9 mg/dL (0.2-1.3); Total Protein 6.4 g/dL (6.3-8.2)
[2021-10-19] MEDS: ZIPRASIDONE 20 MG CAP PO SCH (08:43)
--- NOTE | 2021-10-19 10:41 | P.PN ---
Progress Note - Text Progress Note Date: 10/19/21 Interval History: Patient was seen wandering the hallways and was directable and agreeable to sp kirt with account underwriter in the office. Patient continues to have poor eye contact, she appears to be calmer today. Continues to be somewhat disorganized in her thought process. She was complaining about "the feelings being written about me" and referring to the petition and also the clinical certificate. She states that her mood is "about the same" and is denying any depression or anxiety at the moment. She states that she is going to some groups however was not able to specify what she is learning. She continues to minimize her need to be in the hospital and also her need for medication. She continues to ask account underwriter "how am I making bad decisions?". She claims that she was able to sleep fairly last night and has a fair appetite. At this time patient denies any suicidal or homical ideations, intent or plan. Patient denies any auditory, visual hallucinations. Patient denies any side effects from the medications and has been compliant with meds. Mental Status Exam: General Appearance: Patient appears to be stated age is alert, directable, rambles at times, improving. She appears to have fair hygiene and grooming. Poor eye contact. Behavior: Patient is calmly sitting in chair, poor eye contact. Speech: Patient's speech is fluent and nonpressured. Vague, improving mildly Mood/Affect: Patient reports their mood is "the same" affect is blunted, improving mildly Suicidality/Homicidality: Patient is currently denying any suicidal or homicidal ideation. Perceptions: Patient denies any visual hallucinations and denies any auditory hallucinations Though content/process: Patient endorses significant delusional thought content, paranoia. Disorganized thoughts, improving mildly Memory and concentration: AOX3, grossly intact for the purposes of this session. Can spell "WORLD" backwards Judgment and insight: Poor, improving mildly IMPRESSIONS: Schizoaffective disorder, bipolar type Nicotine dependence Plan: -Patient continues to meet criteria for inpatient psychiatric admission for symptom stabilization and safety. Patient has not signed adult voluntary form and medication consent and was placed in patient's chart. -Medications: Increase Geodon 40 mg twice a day for psychosis/mood stabilization, trazodone 50 mg daily at bedtime when necessary for insomnia, propranolol 20 mg twice a day when necessary for anxiety. -Suture Winder Hand reviewed EKG -When necessary Ativan and Haldol for agitation/aggression. -NRT - nicotine patch -SW on board for discharge planning. Encouraged the patient to participate in milieu. Currently awaiting deferral with tax associate attorney and court date.
[2021-10-19 13:47] LABS: Chol/HDL Ratio 4.73 Ratio; LDL Cholesterol,Calculated 129.3 mg/dL (0.0-131.0)
[2021-10-19] MEDS: ZIPRASIDONE 40 MG CAP PO SCH (20:51)
[2021-10-20] MEDS: ZIPRASIDONE 40 MG CAP PO SCH ×2 (09:06→21:29)
--- NOTE | 2021-10-20 10:06 | P.PN ---
Progress Note - Text Progress Note Date: 10/20/21 Interval History: Patient was seen lying in her bed today and was agreeable to speak to headline writer. Patient claims that she slept in the bed today and slept fairly last night. She states that she feels a bit calmer today and was more organized in her thought process. She was also linear and goal oriented. She spoke briefly about speaking with her parents over the phone and claims that she does not know if she is able to go back there or not. She states that she is going to some groups and attending to participate and spoke briefly about what she is learning. She states that her anxiety and mood mood have been improving. She offered no complaints about her medications and denies any side effects at this time. Claims that her appetite has been improving. She is claiming that her paranoia has been improving. At this time patient denies any suicidal or homical ideations, intent or plan. Patient denies any auditory, visual hallucinations. Patient denies any side effects from the medications and has been compliant with meds. Mental Status Exam: General Appearance: Patient appears to be stated age is alert, directable, improving. She appears to have fair hygiene and grooming. Improving eye contact. Behavior: Patient is calmly sitting in chair, poor eye contact. Speech: Patient's speech is fluent and nonpressured. Vague, improving mildly Mood/Affect: Patient reports their mood is "a bit better" affect is blunted, improving mildly Suicidality/Homicidality: Patient is currently denying any suicidal or homicidal ideation. Perceptions: Patient denies any visual hallucinations and denies any auditory hallucinations Though content/process: Patient endorses significant delusional thought content, paranoia,improving mildly Memory and concentration: AOX3, grossly intact for the purposes of this session. Judgment and insight: Poor, improving mildly IMPRESSIONS: Schizoaffective disorder, bipolar type Nicotine dependence Plan: -Patient continues to meet criteria for inpatient psychiatric admission for symptom stabilization and safety. Patient has not signed adult voluntary form and medication consent and was placed in patient's chart. -Medications: Geodon 40 mg twice a day for psychosis/mood stabilization, trazodone 50 mg daily at bedtime when necessary for insomnia, propranolol 20 mg twice a day when necessary for anxiety. -Dedicated Driver reviewed EKG -When necessary Ativan and Haldol for agitation/aggression. -NRT - nicotine patch -SW on board for discharge planning. Encouraged the patient to participate in milieu. patient signed deferral with her assistant county attorney. Likely discharge early next week if patient continues to improve.
[2021-10-21] MEDS: ZIPRASIDONE 40 MG CAP PO SCH ×2 (08:53→21:07)
--- NOTE | 2021-10-21 19:39 | P.PN ---
Progress Note - Text Progress Note Date: 10/21/21 Interval history: Patient was seen wandering the hallways and was directable and agreeable to speak with fiction and nonfiction writer prose. She presents with odd affect and claims to be in a great mood with no concerns. At this time, patient denies any suicidal or homicidal ideations, intent or plan. She denies any auditory or visual hallucinations. She denies any side effects from the medications and has been compliant with meds. She also makes sure to state she has not been having any "thoughts of being controlled" and smiles brightly. There is concern she is likely under-reporting her symptoms. Mental status exam: General Appearance: Patient appears to be stated age, is obese, with clean a ttire. Behavior: No agitated behavior. Patient appears calm and directable, is observed walking the hallways with a peer. Speech: Patient's speech is fluent and non-pressured. Mood/Affect: Mood is improving, affect is odd with big smile. Suicidality/Homicidality: Patient denies having any suicidal or homicidal ideation intent or plan. Perceptions: Patient denies any auditory or visual hallucinations. Though content/process: She appears to be utilizing the defense mechanisms of denial and minimization; thoughts are linear. Memory and concentration: AOX3, grossly intact for the purposes of this session Judgment and insight: poor Assessment/Plan: Continue with current diagnosis. Patient continues to meet criteria for inpatient psychiatric admission for symptom stabilization and safety. Patient will be maintained on current psychotropic medication regimen. Monitor for medication compliance and for any psychotropic medication side effects. Will continue to monitor ongoing response to treatment. Encouraged participation in milieu.
[2021-10-22] MEDS: ZIPRASIDONE 40 MG CAP PO SCH ×2 (08:31→20:09)
--- NOTE | 2021-10-22 17:54 | P.PN ---
Progress Note - Text Progress Note Date: 10/22/21 Interval history: Patient was seen asleep in bed, awakens easily to voice, and was directable and agreeable to speak with marketing copywriter. She presents with odd affect, reports good mood and denies any concerns today. At this time, patient denies any suicidal or homicidal ideations, intent or plan. She denies any auditory or visual hallucinations. She denies any side effects from the medications and has been compliant with meds. No delusional thoughts expressed. Mental status exam: General Appearance: Patient appears to be stated age, is obese, good hygiene, laying in bed with covers on. Behavior: No agitated behavior. Patient appears calm and directable. Speech: Patient's speech is fluent and non-pressured. Mood/Affect: Mood is improving, affect is odd. Suicidality/Homicidality: Patient denies having any suicidal or homicidal ideation intent or plan. Perceptions: Patient denies any auditory or visual hallucinations. Though content/process: She appears to be utilizing the defense mechanisms of denial and minimization; thoughts are linear. Memory and concentration: AOX3, grossly intact for the purposes of this session Judgment and insight: poor Assessment/Plan: Continue with current diagnosis. Patient continues to meet criteria for inpatient psychiatric admission for symptom stabilization and safety. Patient will be maintained on current psychotropic medication regimen. Monitor for medication compliance and for any psychotropic medication side effects. Will continue to monitor ongoing response to treatment. Encouraged participation in milieu.
[2021-10-23 06:55] VITALS: BP 103/56; PULSE 69; RESP 16; TEMP 97.4
[2021-10-23] MEDS: ZIPRASIDONE 40 MG CAP PO SCH ×2 (08:32→20:43)
--- NOTE | 2021-10-23 10:23 | P.PN ---
Progress Note - Text Progress Note Date: 10/23/21 Interval History: Patient was seen today and was agreeable to speak to senior mortgage underwriter. Patient claims that she slept in the bed today and slept fairly last night. She appears to be calmer today and also brighter in her affect. She states that she feels medication has been helping her however was fairly vague about how it is. She states that her mood and anxiety of an improving. She was more logical in her thought process was goal oriented. She states that her anxiety has been improving as well. She claims that her appetite is improving and she is being more interactive and going to groups. She states that she is most likely going to be going to her mother's house upon discharge. She offered no complaints about her medications and denies any side effects at this time. Claims that her appetite has been improving. She is claiming that her paranoia has been improving. At this time patient denies any suicidal or homical ideations, intent or plan. Patient denies any auditory, visual hallucinations. Patient denies any side effects from the medications and has been compliant with meds. Mental Status Exam: General Appearance: Patient appears to be stated age is alert, directable, improving. She appears to have fair hygiene and grooming. Improving eye contact. Behavior: Patient is calmly sitting in chair, poor eye contact. Speech: Patient's speech is fluent and nonpressured. Vague, improving mildly Mood/Affect: Patient reports their mood is "better" affect is improving mildly Suicidality/Homicidality: Patient is currently denying any suicidal or homicidal ideation. Perceptions: Patient denies any visual hallucinations and denies any auditory hallucinations Though content/process: Patient is not endorsing any paranoia or delusions today. [place] oriented. Memory and concentration: AOX3, grossly intact for the purposes of this session. Judgment and insight: improving mildly IMPRESSIONS: Schizoaffective disorder, bipolar type Nicotine dependence Plan: -Patient continues to meet criteria for inpatient psychiatric admission for symptom stabilization and safety. Patient has not signed adult voluntary form and medication consent and was placed in patient's chart. -Medications: Geodon 40 mg twice a day for psychosis/mood stabilization, trazodone 50 mg daily at bedtime when necessary for insomnia, propranolol 20 mg twice a day when necessary for anxiety. -When necessary Ativan and Haldol for agitation/aggression. -NRT - nicotine patch -SW on board for discharge planning. Encouraged the patient to participate in milieu. patient signed deferral with her family law attorney. Likely discharge tomorrow if patient continues to improve
[2021-10-24] MEDS: ZIPRASIDONE 40 MG CAP PO SCH (08:32)
--- NOTE | 2021-10-24 09:38 | P.DS ---
Providers Date of admission: 10/18/21 03:27 Expected date of discharge: 10/24/21 Attending physician: Shaheed Palacio MD Consults: 10/18/21 03:45 Consult Physician Routine Consulting Provider: Steven Logan Consult Reason/Comments: For H & P for Medical Follow up Do you want consulting provider notified?: Yes Primary care physician: Stated None - Discharge Diagnosis(es) (1) Schizoaffective disorder, bipolar type Current Visit: Yes Status: Acute Priority: High (2) Nicotine dependence Current Visit: Yes Status: Acute Priority: Low Hospital Course: Admission HPI: Admission note was completed by commercial loan underwriter "Patient is a single, unemployed, 31-year-old female with a significant history of depression and psychotic symptoms, currently living between families houses. Patient presented to the hospital yesterday and was according to ER report and the patient has been off her medications for about 3 weeks now. She was also endorsing a flight of ideas and apparently mother had stated that patient was having hallucinations and feelings are "people were with her" and also exhibiting "manic type" behaviors quitting impulsiveness quitting job and excessive spending. Patient apparently recently bought a new vehicle that she could not afford. Her UDS was negative. Patient was seen today after being admitted involuntarily to the mental health unit. She claims that she has been "experiencing some symptoms" and spoke about derealization and feeling that she is not within her body. She states "I don't know if it's real or not". She claims that she is also feeling depressed and having little energy. She states that she has been living out of her car for the past several weeks in [place] [facility] and attempting to "save up for an apartment" "doing door. She states that she has been mismanaging her money and excessive spending. She was fairly vague about her symptoms and was rambling at times and had loose associations. She was fairly disorganized in her thought process. She was recently discharged from the mental health unit in August 2021. She was also endorsing paranoia at this time. She states that she is "too afraid to take my medications". She claims that her sleep has been on and off appetite has been fair. She seems unconcerned about her symptoms and focused on discharge. At this time she is denying any auditory or visual hallucinations and denying any suicidal or homicidal ideations intent or plan." Hospital course: Upon admission to the unit patient was directable and agreeable to commence treatment and signed deferralwith her estate attorney after filing involuntary with the courts. Patient got along well with other patients on the unit and followed unit protocol. Patient was compliant with the medications and denied any side effects throughout hospital course. Patient was started on Geodon 40 mg twice a day for psychosis/mood stabilization and propranolol twice a day when necessary for anxiety. Patient spoke of her stressors and engaged in therapy both group and individual. Patient was also seen by medical team for history and physical exam. Throughout the course of the hospitalization patient gradually improved with regards to mood, anxiety, sleep and returned back to their baseline level of functioning. On the day of discharge patient denied any suicidal or homicidal ideations intent or plan denied any auditory or visual hallucinations. Patient endorsed wanting to live for her health and her family. The patient denied any access to guns or weapons. Patient denied any paranoia and did not endorse any delusions. Patient does not have a significant history of substance abuse and was counseled on abstaining from all substances including alcohol and marijuana. Patient was also counseled on the medications and need for regular compliance and was encouraged to follow-up with their outpatient appointment for mental health and also for primary care. Prior to discharge a family meeting will be arranged by social science teacher to answer any questions and ensure safety upon discharge. Mental status exam: General Appearance: Patient appears to be overweight, stated age is alert, pleasant, and cooperative. Patient is in no acute distress and has improved hygiene and grooming Behavior: Patient is calmly seated without any agitated behavior. Speech: Patient's speech is fluent and nonpressured. Mood/Affect: Patient reports their mood is "better", affect is congruent and euthymic. Suicidality/Homicidality: Patient denies having any suicidal or homicidal ideation intent or plan. Perceptions: Patient denies any auditory or visual hallucinations. Though content/process: There is no evidence of any delusional thought content and thought process is linear and goal-directed. Memory and concentration: AOX3, grossly intact for the purposes of this session. Can spell "WORLD" backwards correctly. Judgment and insight: chronically poor, however has improved with guarded prognosis Impression: Schizoaffective disorder bipolar type Nicotine dependence Plan: -Continue with discharge today as patient has improved and stabilized psychiatrically and is not currently an imminent threat to herself and/or others. Patient will remain at chronically elevated risk for harm to self and/or others due to her chronically poor insight and judgment -Continue medications: Geodon 40 mg twice a day for psychosis/mood stabilization, propranolol 20 mg twice a day when necessary for anxiety -Patient was counseled on the need for medication compliance and appropriate follow-up at mental health and also primary care for medical issues. Patient verbalized understanding and agreed. -Social work to arrange for and conduct family meeting to ensure safety upon discharge and answer any questions/concerns. Social work also to arrange for patients follow up appointments for psychiatric care along with follow up with primary care provider. -Patient counseled on abstaining from recreational drugs and marijuana and alcohol. Was informed/educated on the adverse effects on their physical and mental health. Patient verbally agreed and understood. -Patient was instructed to return to the hospital or seek immediate medical care if their psychiatric or medical symptoms do worsen or reoccur. Allergies Allergy/AdvReac Type Severity Reaction Status Date / Time amoxicillin [From Augmentin] Allergy Rash/Hives Verified 10/18/21 03:53 clavulanic acid Allergy Rash/Hives Verified 10/18/21 03:53 [From Augmentin] Penicillins Allergy Rash/Hives Verified 10/18/21 03:53 Sulfa (Sulfonamide Allergy Rash/Hives Verified 10/18/21 03:53 Antibiotics) Laboratory Results WBC 7.7 k/uL (3.8-10.6) 10/19/21 06:45 RBC 4.45 m/uL (3.80-5.40) 10/19/21 06:45 Hgb 13.8 gm/dL (11.4-16.0) 10/19/21 06:45 Hct 41.8 % (34.0-46.0) 10/19/21 06:45 MCV 93.9 fL (80.0-100.0) 10/19/21 06:45 MCH 30.9 pg (25.0-35.0) 10/19/21 06:45 MCHC 32.9 g/dL (31.0-37.0) 10/19/21 06:45 RDW 12.1 % (11.5-15.5) 10/19/21 06:45 Plt Count 270 k/uL (150-450) 10/19/21 06:45 MPV 8.4 10/19/21 06:45 Neutrophils % 56 % 10/19/21 06:45 Lymphocytes % 30 % 10/19/21 06:45 Monocytes % 7 % 10/19/21 06:45 Eosinophils % 5 % 10/19/21 06:45 Basophils % 1 % 10/19/21 06:45 Neutrophils # 4.3 k/uL (1.3-7.7) 10/19/21 06:45 Lymphocytes # 2.3 k/uL (1.0-4.8) 10/19/21 06:45 Monocytes # 0.5 k/uL (0-1.0) 10/19/21 06:45 Eosinophils # 0.4 k/uL (0-0.7) 10/19/21 06:45 Basophils # 0.1 k/uL (0-0.2) 10/19/21 06:45 Sodium 140 mmol/L (137-145) 10/19/21 06:45 Potassium 4.2 mmol/L (3.5-5.1) 10/19/21 06:45 Chloride 105 mmol/L (98-107) 10/19/21 06:45 Carbon Dioxide 21 mmol/L (22-30) L 10/19/21 06:45 Anion Gap 14 mmol/L 10/19/21 06:45 BUN 10 mg/dL (7-17) 10/19/21 06:45 Creatinine 0.77 mg/dL (0.52-1.04) 10/19/21 06:45 Est GFR (CKD-EPI)AfAm >90 (>60 ml/min/1.73 sqM) 10/19/21 06:45 Est GFR (CKD-EPI)NonAf >90 (>60 ml/min/1.73 sqM) 10/19/21 06:45 Glucose 88 mg/dL (74-99) 10/19/21 06:45 Calcium 9.2 mg/dL (8.4-10.2) 10/19/21 06:45 Total Bilirubin 0.9 mg/dL (0.2-1.3) 10/19/21 06:45 Conjugated Bilirubin 0.0 mg/dL (0.0-0.3) 10/19/21 06:45 Unconjugated Bilirubin 0.9 mg/dL (0.0-1.1) 10/19/21 06:45 Delta Bilirubin 0.0 mg/dL (0.0-0.2) 10/19/21 06:45 AST 20 U/L (14-36) 10/19/21 06:45 ALT 14 U/L (4-34) 10/19/21 06:45 Alkaline Phosphatase 60 U/L (38-126) 10/19/21 06:45 Total Protein 6.4 g/dL (6.3-8.2) 10/19/21 06:45 Albumin 3.9 g/dL (3.5-5.0) 10/19/21 06:45 Triglycerides 146.00 mg/dL (0.00-149.00) 10/19/21 06:45 Cholesterol 201.00 mg/dL (0.00-200.00) H 10/19/21 06:45 LDL Cholesterol, Calc 129.3 mg/dL (0.0-131.0) 10/19/21 06:45 VLDL Cholesterol, Calc 29.20 mg/dL (5.00-40.00) 10/19/21 06:45 HDL Cholesterol 42.50 mg/dL (40.00-60.00) 10/19/21 06:45 Cholesterol/HDL Ratio 4.73 Ratio 10/19/21 06:45 TSH 1.730 mIU/L (0.465-4.680) 10/19/21 06:45 Urine Color Yellow 10/18/21 01:05 Urine Appearance Clear (Clear) 10/18/21 01:05 Urine pH 5.5 (5.0-8.0) 10/18/21 01:05 Ur Specific Wilbur 1.011 (1.001-1.035) 10/18/21 01:05 Urine Protein Negative (Negative) 10/18/21 01:05 Urine Glucose (UA) Negative (Negative) 10/18/21 01:05 Urine Ketones Negative (Negative) 10/18/21 01:05 Urine Blood Small (Negative) H 10/18/21 01:05 Urine Nitrite Negative (Negative) 10/18/21 01:05 Urine Bilirubin Negative (Negative) 10/18/21 01:05 Urine Urobilinogen <2.0 mg/dL (<2.0) 10/18/21 01:05 Ur Leukocyte Esterase Trace (Negative) H 10/18/21 01:05 Urine RBC 1 /hpf (0-5) 10/18/21 01:05 Urine WBC 2 /hpf (0-5) 10/18/21 01:05 Ur Squamous Epith Cells 2 /hpf (0-4) 10/18/21 01:05 Urine Bacteria Occasional /hpf (None) H 10/18/21 01:05 Urine Mucus Few /hpf (None) H 10/18/21 01:05 Urine HCG, Qual Not Detected (Not Detectd) 10/18/21 01:05 Urine Opiates Screen Not Detected (NotDetected) 10/18/21 01:05 Ur Oxycodone Screen Not Detected (NotDetected) 10/18/21 01:05 Urine Methadone Screen Not Detected (NotDetected) 10/18/21 01:05 Ur Propoxyphene Screen Not Detected (NotDetected) 10/18/21 01:05 Ur Barbiturates Screen Not Detected (NotDetected) 10/18/21 01:05 U Tricyclic Antidepress Not Detected (NotDetected) 10/18/21 01:05 Ur Phencyclidine Scrn Not Detected (NotDetected) 10/18/21 01:05 Ur Amphetamines Screen Not Detected (NotDetected) 10/18/21 01:05 U Methamphetamines Scrn Not Detected (NotDetected) 10/18/21 01:05 U Benzodiazepines Scrn Not Detected (NotDetected) 10/18/21 01:05 Urine Cocaine Screen Not Detected (NotDetected) 10/18/21 01:05 U Marijuana (THC) Screen Not Detected (NotDetected) 10/18/21 01:05 Coronavirus (PCR) Not Detected (Not Detectd) 10/18/21 00:11 Vital Signs Temp 97.4 F L 10/23/21 06:54 Pulse 69 10/23/21 06:54 Resp 16 10/23/21 06:54 BP 103/56 10/23/21 06:54 Pulse Ox 100 10/23/21 06:54 FiO2 Patient Condition at Discharge: Fair Plan - Discharge Summary New Discharge Prescriptions: New Ziprasidone [Geodon] 40 mg PO BID 30 Days cap Propranolol [Inderal] 20 mg PO BID PRN 14 Days tab PRN Reason: anxiety Discontinued Propranolol [Inderal] 20 mg PO BID PRN 30 Days tab PRN Reason: anxiety hydrOXYzine pamoate [Vistaril] 25 mg PO HS PRN 30 Days cap PRN Reason: Insomnia Brexpiprazole [Rexulti] 2 mg PO DAILY Discharge Medication List Propranolol [Inderal] 20 mg PO BID PRN 14 Days tab 10/24/21 [Rx] Ziprasidone [Geodon] 40 mg PO BID 30 Days cap 10/24/21 [Rx] Follow up Appointment(s)/Referral(s): [facility] [Outside] - 10/26/21 10:00 am (10/26 @ 10:00 with Tamera 11/01 @ 11:30 withvictor m Lopez ) None,Stated [Primary Care Provider] - 1-2 days Activity/Diet/Wound Care/Special Instructions: Avoid the use of street drugs and alcohol. Take all prescriptions as prescribed. When you are in need of refills on your medications, please contact your medical provider and/or outpatient psychiatrist to have this done. Please go to scheduled outpatient appointment for aftercare treatment. If symptoms return or become worse, call the crisis line at and/or go to the nearest emergency room for evaluation. Discharge Disposition: HOME SELF-CARE
== END 2021-10-24 12:37 | disposition home or self-care (01) | DRG 885 ==
LOC: EC 17:19 → 3MHU 10-18 03:27
PROVIDERS: ADMIT Psychiatry & Neurology Psychiatry; ATTEND Psychiatry & Neurology Psychiatry
DX: F25.0 Schizoaffective disorder, bipolar type (principal); R45.851 Suicidal ideations; F17.210 Nicotine dependence, cigarettes, uncomplicated; F41.9 Anxiety disorder, unspecified; F41.0 Panic disorder [episodic paroxysmal anxiety]; F41.1 Generalized anxiety disorder; F32.A Depression, unspecified; F43.10 Post-traumatic stress disorder, unspecified; Z56.0 Unemployment, unspecified; Z79.899 Other long term (current) drug therapy; E66.9 Obesity, unspecified; Z68.36 Body mass index [BMI] 36.0-36.9, adult; Z71.3 Dietary counseling and surveillance
CPT/HCPCS: 80053; 80061; 80306; 81001; 81025; 82075; 82248; 84443; 85025; 87635; 93005; 99285